=== PATIENT | male | born 1975 | race Caucasian/White ===

== ENCOUNTER 2021-11-25 16:28 | Emergency (ER) | payer MEDICAID ==
[~2021-11-25] VITALS: Ht 180.3 cm; Wt 72.7 kg
[2021-11-25 16:48] VITALS: BP 102/66
== END 2021-11-25 20:20 | disposition home or self-care (01) ==
LOC: ER 16:30
DX: R51.9 Headache, unspecified (principal); Z20.822 Contact with and (suspected) exposure to COVID-19; R11.2 Nausea with vomiting, unspecified; R53.83 Other fatigue; R50.9 Fever, unspecified; F17.200 Nicotine dependence, unspecified, uncomplicated; Z72.89 Other problems related to lifestyle; Z59.00 Homelessness unspecified
CPT/HCPCS: 87635; 93005; 99284; C9803

== ENCOUNTER 2021-11-28 20:43 | Emergency (ER) | payer MEDICAID ==
[~2021-11-28] VITALS: Ht 180.3 cm; Wt 72.7 kg
[2021-11-28 21:27] LABS: BASOPHILS # (AUTO) 0.1 X10'3 (0-0.2); BASOPHILS % (AUTO) 0.8 % (0-1); EOSINOPHILS # (AUTO) 0.2 X10'3 (0-0.9); EOSINOPHILS % (AUTO) 1.1 % (0-6); HEMATOCRIT 45.3 % (42.0-52.0); HEMOGLOBIN 15.1 g/dl (14.0-17.9); LYMPHOCYTES # (AUTO) 2.8 X10'3 (1.1-4.8); LYMPHOCYTES % (AUTO) 17.7 % (21-51); MEAN CORPUSCULAR HGB CONC 33.3 g/dL (33.0-36.5); MEAN CORPUSCULAR VOLUME 89.9 FL (78-98); MEAN PLATELET VOLUME 7.6 FL (7.4-10.4); MONOCYTES # (AUTO) 1.3 X10'3 (0-0.9); MONOCYTES % (AUTO) 8.1 % (2-12); NEUTROPHILS # (AUTO) 11.3 X10'3 (1.8-7.7); NEUTROPHILS % (AUTO) 72.3 % (42-75); PLATELET COUNT 425 X10'3 (140-440); RED BLOOD COUNT 5.03 X10'6 (4.70-6.10); RED CELL DISTRIBUTION WIDTH 13.9 % (11.5-14.5); WHITE BLOOD COUNT 15.7 X10'3 (4.5-11.0)
[2021-11-28 21:42] LABS: ALANINE AMINOTRANSFERASE 53 U/L (12-78); ALBUMIN/GLOBULIN RATIO 1.3 (1.1-1.5); ALKALINE PHOSPHATASE 74 IU/L (46-116); ANION GAP 9 (8-16); ASPARTATE AMINO TRANSFERASE 26 U/L (10-37); BILIRUBIN,TOTAL 0.3 MG/DL (0.1-1.0); BLOOD UREA NITROGEN 12 MG/DL (7-18); BUN/CREATININE RATIO 15.8 (5.4-32.0); CALCIUM 9.2 MG/DL (8.5-10.1); CHLORIDE 104 MMOL/L (99-107); CREATININE 0.76 MG/DL (0.60-1.10); GLUCOSE 125 MG/DL (70-104); POTASSIUM 3.8 MMOL/L (3.5-5.1); SODIUM 142 MMOL/L (135-145); TOTAL CARBON DIOXIDE 28.9 MMOL/L (24-32); eGFR > 90 ML/MIN
[2021-11-29 05:25] VITALS: BP 108/80
== END 2021-11-29 07:05 | disposition home or self-care (01) ==
LOC: ER 20:44
DX: R53.82 Chronic fatigue, unspecified (principal); R06.02 Shortness of breath; Z59.00 Homelessness unspecified; Z86.16 Personal history of COVID-19
CPT/HCPCS: 36415; 71045; 80053; 83880; 84484; 85025; 93005; 99285

== ENCOUNTER 2021-12-09 21:07 | Emergency (ER) | payer MEDICAID ==
[~2021-12-09] VITALS: Ht 180.3 cm; Wt 68.2 kg
[2021-12-09 22:17] LABS: BASOPHILS # (AUTO) 0.2 X10'3 (0-0.2); BASOPHILS % (AUTO) 1.3 % (0-1); EOSINOPHILS # (AUTO) 0.2 X10'3 (0-0.9); EOSINOPHILS % (AUTO) 1.1 % (0-6); HEMATOCRIT 43.9 % (42.0-52.0); LYMPHOCYTES # (AUTO) 2.9 X10'3 (1.1-4.8); LYMPHOCYTES % (AUTO) 22.2 % (21-51); MEAN CORPUSCULAR HEMOGLOBIN 30.1 PG (27.0-31.0); MEAN CORPUSCULAR HGB CONC 34.2 g/dL (33.0-36.5); MEAN PLATELET VOLUME 7.1 FL (7.4-10.4); MONOCYTES # (AUTO) 1.3 X10'3 (0-0.9); MONOCYTES % (AUTO) 9.9 % (2-12); NEUTROPHILS # (AUTO) 8.6 X10'3 (1.8-7.7); NEUTROPHILS % (AUTO) 65.5 % (42-75); PLATELET COUNT 431 X10'3 (140-440); RED BLOOD COUNT 4.99 X10'6 (4.70-6.10); RED CELL DISTRIBUTION WIDTH 13.4 % (11.5-14.5); WHITE BLOOD COUNT 13.2 X10'3 (4.5-11.0)
[2021-12-09 22:29] LABS: ALANINE AMINOTRANSFERASE 45 U/L (12-78); ALBUMIN 4.1 G/DL (3.4-5.0); ALBUMIN/GLOBULIN RATIO 1.4 (1.1-1.5); ALKALINE PHOSPHATASE 78 IU/L (46-116); ANION GAP 10 (8-16); ASPARTATE AMINO TRANSFERASE 32 U/L (10-37); BILIRUBIN,TOTAL 1.3 MG/DL (0.1-1.0); BLOOD UREA NITROGEN 15 MG/DL (7-18); BUN/CREATININE RATIO 17.6 (5.4-32.0); CALCIUM 9.4 MG/DL (8.5-10.1); CHLORIDE 103 MMOL/L (99-107); CREATININE 0.85 MG/DL (0.60-1.10); GLUCOSE 87 MG/DL (70-104); POTASSIUM 4.1 MMOL/L (3.5-5.1); SODIUM 141 MMOL/L (135-145); eGFR > 90 ML/MIN
[2021-12-09 22:37] LABS: ETHANOL < 0.010 GM/DL (0.0-0.010)
[2021-12-09 22:47] LABS: CLARITY,URINE CLEAR (Clear); COLOR,URINE YELLOW (Yellow); GLUCOSE, URINE NEGATIVE (Neg); KETONES,URINE NEGATIVE (Neg); LEUKOCYTE ESTERASE ,URINE NEGATIVE (Neg); NITRITES, URINE NEGATIVE (Neg); OCCULT BLOOD,URINE NEGATIVE (Neg); PH,URINE 7.5 (4.8-8.0); PROTEIN,URINE NEGATIVE (Neg); UROBILINOGEN,URINE 0.2 E.U/dL (0.2-1.0)
[2021-12-09 22:55] LABS: UA COLLECTION TYPE URINAL
[2021-12-09 22:56] LABS: URINE AMPHETAMINE SCREEN POSITIVE (Neg); URINE BARBITUATE SCREEN NEGATIVE (Neg); URINE BENZODIAZEPINES SCREEN NEGATIVE (Neg); URINE CANNABINOID SCREEN POSITIVE (Neg); URINE COCAINE SCREEN NEGATIVE (Neg); URINE METHADONE SCREEN NEGATIVE (Neg); URINE OPIATE SCREEN NEGATIVE (Neg); URINE PHENCYCLIDINE SCREEN NEGATIVE (Neg)
--- NOTE | 2021-12-09 23:30 | NUR ---
Rounded on patient, sleeping quietly on gurney without apparent distress.
--- NOTE | 2021-12-10 01:27 | NUR ---
Rounded on patient, sleeping quietly without apparent distress [place].
--- NOTE | 2021-12-10 01:50 | NUR ---
[facility] PACKET FAXED
--- NOTE | 2021-12-10 02:18 | NUR ---
Received report from SARITHA Vasquez. We are awaiting a Covid test. Plan is to transfer soon to bed 25. Tox screen is positive for meth and thc.
--- NOTE | 2021-12-10 02:55 | NUR ---
Pt. transferred to [facility] Rm. 25 via [facility] after report given to Jose L MELARA earlier.
--- NOTE | 2021-12-10 04:14 | NUR ---
Patient sleeps quietly on his right side.
--- NOTE | 2021-12-10 06:50 | NUR ---
Received report from SARITHA Domingo. Pt appears to be sleeping. RR even and unlabored.
--- NOTE | 2021-12-10 08:14 | NUR ---
amina sent packet to [facility]
--- NOTE | 2021-12-10 08:17 | NUR ---
Waiting for pt's breakfast tray. Pt appears to be sleeping. RR even and unlabored.
--- NOTE | 2021-12-10 10:14 | NUR ---
Pt resting with his eyes closed. RR even and unlabored. x1 to the BR.
--- NOTE | 2021-12-10 12:11 | NUR ---
Pt up for lunch. He is calm and cooperative with staff.
--- NOTE | 2021-12-10 14:12 | NUR ---
Pt appears to be sleeping. RR even and unlabored. No distress noted.
--- NOTE | 2021-12-10 14:58 | NUR ---
[facility] team here for evaluation. Pt up talking with staff.
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
[2021-12-10 17:51] VITALS: BP 91/56
--- NOTE | 2021-12-10 18:21 | NUR ---
TECH GAVE PT THEIR DINNER TRAY
--- NOTE | 2021-12-10 18:46 | NUR ---
Patient is laying on his right side. He presents as disheveled. Patient denies S/I or H/I. He does state visual hallucinations but does not elaborate. Patient denies audible hallucinations. He is cooperative and wants to rest.
--- NOTE | 2021-12-10 20:59 | NUR ---
Patient is sleeping quietly, no distress.
--- NOTE | 2021-12-10 21:45 | NUR ---
Report to Laura BARFIELD at [facility]. Acceptance is pending.
--- NOTE | 2021-12-10 22:10 | NUR ---
Patient is sleeping quietly, no distress.
--- NOTE | 2021-12-11 00:18 | NUR ---
Patient sleeping quietly, in view from nurses station.
--- NOTE | 2021-12-11 03:53 | NUR ---
Patient is sleeping quietly on his right side.
--- NOTE | 2021-12-11 04:20 | NUR ---
[facility] [place] [facility] for a nurse to nurse report on this patient. Kareen was advised that [facility], was also looking at this patient for admit. She requested a report and was thus given one, she states they use a different provider.
--- NOTE | 2021-12-11 06:31 | NUR ---
Patient sleeping on right side. No distress observed. Continue to monitor.
--- NOTE | 2021-12-11 08:27 | NUR ---
Patient sitting up and eating breakfast. No distress observed. Continue to monitor.
--- NOTE | 2021-12-11 10:32 | NUR ---
Patient sleeping with snoring respirations. No distress observed. Continue to monitor.
--- NOTE | 2021-12-11 12:10 | NUR ---
Patient's lunch at bedside. Patient is still sleeping. No distress observed. Continue to monitor.
--- NOTE | 2021-12-11 13:22 | NUR ---
Patient eating lunch. No distress observed. Continue to monitor.
--- NOTE | 2021-12-11 15:16 | NUR ---
Patient continues to sleep. No distress observed. Continue to monitor.
== END 2021-12-11 16:10 ==
LOC: ER 21:08
DX: F15.959 Other stimulant use, unspecified with stimulant-induced psychotic disorder, unspecified (principal); Z20.822 Contact with and (suspected) exposure to COVID-19; Z59.00 Homelessness unspecified
CPT/HCPCS: 36415; 80053; 80305; 80320; 81003; 84443; 85025; 87811; 99285